=== PATIENT | female | born 1965 | race Caucasian/White ===

== ENCOUNTER 2019-08-07 09:37 | Inpatient (IN) | payer BC ==
[~2019-08-07] VITALS: Ht 154.9 cm; Wt 89.4 kg
[2019-08-07 10:31] LABS: BASOPHIL % 0.9 % (0-2); PLATELET COUNT 278 x10^3mcL (130-400); RED CELL DISTRIBUTION WIDTH 13.3 % (11.5-14.5)
[2019-08-07 11:02] LABS: ALBUMIN 3.4 g/dL (3.4-5.0); ALKALINE PHOSPHATASE 76 U/L (46-116); ALT/SGPT 81 U/L (14-59); AST/SGOT 106 U/L (15-37); BILIRUBIN TOTAL 0.33 mg/dL (0.20-1.00); CALCIUM 8.8 mg/dL (8.5-10.1); CARBON DIOXIDE 26.4 mmol/L (21-32); CHLORIDE SERUM 107 mmol/L (98-107); CREATININE SERUM 0.7 mg/dL (0.6-1.0); GFR1 > 60 mL/min; GLUCOSE SERUM 98 mg/dL (74-106); SODIUM SERUM 140 mmol/L (136-145)
[2019-08-07 11:19] LABS: POTASSIUM SERUM 2.9 mmol/L (3.5-5.1)
[2019-08-07 14:06] LABS: CHOLESTEROL/HDL RATIO 3.5
[2019-08-07] MEDS ORDERED: TEGRETOL200 MG PO (14:22)
[2019-08-07] MEDS ORDERED: ZYPREXA10 M1 PO (14:22)
[2019-08-07] MEDS ORDERED: COG1 PO (14:22)
[2019-08-07] MEDS ORDERED: MP PO (14:23)
[2019-08-07] MEDS ORDERED: MOM PO (14:24)
[2019-08-07] MEDS ORDERED: ATIVAN1 MG PO (14:24)
[2019-08-07] MEDS ORDERED: TYLENOL325 M1 PO (14:24)
[2019-08-07] MEDS ORDERED: AMBIEN10 MG PO (14:25)
[2019-08-07 14:40] VITALS: BP 137/83
[2019-08-07 17:04] VITALS: BP 137/83
[2019-08-07 18:27] VITALS: BP 145/90
[2019-08-08 06:19] LABS: BASOPHIL % 0.9 % (0-2); PLATELET COUNT 284 x10^3mcL (130-400); RED CELL DISTRIBUTION WIDTH 13.6 % (11.5-14.5)
[2019-08-08 06:31] LABS: CALCIUM 8.1 mg/dL (8.5-10.1); CARBON DIOXIDE 24.1 mmol/L (21-32); CHLORIDE SERUM 111 mmol/L (98-107); CREATININE SERUM 0.6 mg/dL (0.6-1.0); GFR1 > 60 mL/min; GLUCOSE SERUM 91 mg/dL (74-106); MAGNESIUM 2.3 mg/dL (1.8-2.4); PHOSPHOROUS 2.7 mg/dL (2.5-4.9); POTASSIUM SERUM 3.5 mmol/L (3.5-5.1); SODIUM SERUM 145 mmol/L (136-145)
[2019-08-08 09:03] VITALS: BP 109/76
[2019-08-08 17:27] LABS: UA SPECIFIC GRAVITY >=1.030 (1.005-1.035); microscopic required? YES; urine erythrocyte 3+ (NEGATIVE)
[2019-08-08 17:47] LABS: AMPHETAMINE QUAL UR NONE DETECTED (See below)
[2019-08-08 20:58] VITALS: BP 118/70
[2019-08-09 05:44] VITALS: BP 146/91
[2019-08-09 06:25] LABS: BASOPHIL % 0.9 % (0-2); PLATELET COUNT 263 x10^3mcL (130-400)
[2019-08-09 06:38] LABS: CALCIUM 8.3 mg/dL (8.5-10.1); CARBON DIOXIDE 26.9 mmol/L (21-32); CHLORIDE SERUM 115 mmol/L (98-107); CREATININE SERUM 0.7 mg/dL (0.6-1.0); GFR1 > 60 mL/min; GLUCOSE SERUM 86 mg/dL (74-106); MAGNESIUM 2.1 mg/dL (1.8-2.4); PHOSPHOROUS 2.9 mg/dL (2.5-4.9); POTASSIUM SERUM 3.7 mmol/L (3.5-5.1); SODIUM SERUM 149 mmol/L (136-145)
[2019-08-09 08:44] VITALS: BP 142/86
[2019-08-09 13:05] VITALS: BP 148/86
[2019-08-09 13:33] VITALS: Ht 154.9 cm; Wt 89.4 kg
[2019-08-09 15:40] VITALS: BP 134/75
[2019-08-09] MEDS ORDERED: OMEPRAZOLE40 M1 PO (16:20)
[2019-08-09] MEDS ORDERED: IRON325 M3 PO (16:21)
[2019-08-09] MEDS ORDERED: NATURE'S BLEND F1 MG PO (16:22)
[2019-08-09] MEDS ORDERED: MULTIVITAMIN1 SGL PO (16:23)
[2019-08-09] MEDS ORDERED: PROV5 PO ×2 (16:28→16:30)
== END 2019-08-09 18:33 | DRG 760 ==
LOC: ED 09:37 → DU 13:10
PROVIDERS: Specialist; ADMIT Internal Medicine
DX: D25.9 Leiomyoma of uterus, unspecified (principal); K92.2 Gastrointestinal hemorrhage, unspecified; E87.6 Hypokalemia; F41.8 Other specified anxiety disorders; R74.0 Nonspecific elevation of levels of transaminase and lactic acid dehydrogenase [LDH]; D72.829 Elevated white blood cell count, unspecified; N93.9 Abnormal uterine and vaginal bleeding, unspecified; F32.9 Major depressive disorder, single episode, unspecified; F41.9 Anxiety disorder, unspecified; K59.00 Constipation, unspecified
CPT/HCPCS: C9113; G0378; J3475; J3480; J7030; Q0092

== ENCOUNTER 2019-08-09 19:34 | Inpatient (IN) | payer BC ==
[~2019-08-09] VITALS: Ht 157.5 cm; Wt 81.6 kg
[~2019-08-09 19:34] MED LIST: AMBIEN10 MG PO; ATIVAN1 MG PO; COG1 PO; IRON325 M3 PO; MOM PO; MP PO; MULTIVITAMIN1 SGL PO; NATURE'S BLEND F1 MG PO; OMEPRAZOLE40 M1 PO; PROV5 PO; TEGRETOL200 MG PO; TYLENOL325 M1 PO; ZYPREXA10 M1 PO
[2019-08-09 20:14] VITALS: Ht 157.5 cm; Wt 81.6 kg
[2019-08-09 20:33] LABS: BASOPHIL % 0.9 % (0-2); PLATELET COUNT 274 x10^3mcL (130-400); RED CELL DISTRIBUTION WIDTH 13.9 % (11.5-14.5)
[2019-08-09 20:38] LABS: CALCIUM 8.4 mg/dL (8.5-10.1); CARBON DIOXIDE 25.7 mmol/L (21-32); CHLORIDE SERUM 108 mmol/L (98-107); CREATININE SERUM 0.7 mg/dL (0.6-1.0); GFR1 > 60 mL/min; GLUCOSE SERUM 116 mg/dL (74-106); POTASSIUM SERUM 3.3 mmol/L (3.5-5.1); SODIUM SERUM 144 mmol/L (136-145)
[2019-08-09 20:39] LABS: LIPASE 193 IU/L (73-393)
[2019-08-10 09:59] VITALS: BP 152/91
[2019-08-10 10:44] LABS: BASOPHIL % 0.5 % (0-2); PLATELET COUNT 268 x10^3mcL (130-400); RED CELL DISTRIBUTION WIDTH 13.9 % (11.5-14.5)
[2019-08-10 10:56] LABS: CALCIUM 8.6 mg/dL (8.5-10.1); CARBON DIOXIDE 25.4 mmol/L (21-32); CHLORIDE SERUM 108 mmol/L (98-107); CREATININE SERUM 0.6 mg/dL (0.6-1.0); GFR1 > 60 mL/min; GLUCOSE SERUM 90 mg/dL (74-106); MAGNESIUM 1.8 mg/dL (1.8-2.4); PHOSPHOROUS 3.5 mg/dL (2.5-4.9); POTASSIUM SERUM 3.4 mmol/L (3.5-5.1); SODIUM SERUM 144 mmol/L (136-145)
[2019-08-10 17:08] VITALS: BP 133/85
[2019-08-10 18:01] VITALS: BP 133/85
== END 2019-08-10 19:17 | DRG 761 ==
LOC: ED 19:34 → MU 22:10
PROVIDERS: Emergency Medicine; Internal Medicine; ADMIT Internal Medicine
DX: D25.9 Leiomyoma of uterus, unspecified (principal); E87.6 Hypokalemia; D72.829 Elevated white blood cell count, unspecified; R74.0 Nonspecific elevation of levels of transaminase and lactic acid dehydrogenase [LDH]; F32.9 Major depressive disorder, single episode, unspecified; F41.9 Anxiety disorder, unspecified; Z79.899 Other long term (current) drug therapy
CPT/HCPCS: 83880; C9113; G0378; J3490; J7030